=== PATIENT | female | born 1970 | race Caucasian/White ===

== ENCOUNTER 2019-05-11 22:50 | Emergency (ER) | payer OTHER ==
[~2019-05-11] VITALS: Ht 157.5 cm; Wt 57.2 kg
[2019-05-11 23:04] VITALS: BP 118/60
--- NOTE | 2019-05-11 23:11 | NUR ---
PT AMBULATED TO LOBBY. PROVIDING URINE.
--- NOTE | 2019-05-11 23:56 | NUR ---
PT STATES SHE NO LONGER WANTS MSE. PATIENT LEFT WITHOUT BEING SEEN BY DR. CASTRO. NO FURTHER CARE PROVIDED FOR PATIENT.
== END 2019-05-11 23:56 | disposition left against medical advice (07) ==
LOC: MED 22:50
DX: F41.9 Anxiety disorder, unspecified (principal); Z53.21 Procedure and treatment not carried out due to patient leaving prior to being seen by health care provider